=== PATIENT | female | born 1980 | race Caucasian/White ===

== ENCOUNTER 2018-12-26 20:09 | Emergency (ER) | payer BC ==
--- NOTE | 2018-12-26 20:13 | UC ---
Complaint Female HPI - HPI Summary HPI Summary: 38-year-old female who has had occasional burning on urination over the past week. She denies any fever or chills. No nausea vomiting or diarrhea. Last urinary tract infection was approximately one year ago. - History Of Current Complaint Stated Complaint: URINARY COMPLAINT Time Seen by Provider: 12/26/18 20:12 Hx Obtained From: Patient ?: No Onset/Duration: Gradual Onset Timing: Intermittent Severity Initially: Mild Severity Currently: Moderate Character: Burning Aggravating Factor(s): Urination Associated Signs And Symptoms: Positive: Negative - Allergies/Home Medications Allergies/Adverse Reactions: Allergies Allergy/AdvReac Type Severity Reaction Status Date / Time No Known Allergies Allergy Verified 12/26/18 20:26 Home Medications: Home Medications Ibuprofen TAB* [Motrin TAB* 600 MG] 600 mg PO Q6H PRN 12/26/18 [History Confirmed 12/26/18] PMH/Surg Hx/FS Hx/Imm Hx Previously Healthy: Yes - Family History Known Family History: Positive: Non-Contributory Review of Systems All Other Systems Reviewed And Are Negative: Yes Genitourinary: Positive: Dysuria, Frequency, Urgency. Negative: Vaginal/Penile Burning, Vaginal/Penile Itching, Vaginal/Penile Discharge, Vaginal/Penile Pain, Vaginal/Penile Tenderness Is Patient Immunocompromised?: No Physical Exam Triage Information Reviewed: Yes Appearance: Well-Appearing, No Pain Distress, Well-Nourished Vital Signs Reviewed: Yes Respiratory: Positive: Lungs clear, Normal breath sounds, No respiratory distress, No accessory muscle use Cardiovascular: Positive: RRR, No Murmur, Pulses Normal, Brisk Capillary Refill Abdomen Description: Positive: Nontender, No Organomegaly, Soft. Negative: CVA Tenderness (R), CVA Tenderness (L), Distended, Guarding Bowel Sounds: Positive: Present Musculoskeletal Exam: Normal Neurological Exam: Normal Psychological Exam: Normal Skin Exam: Normal Complaint Female Dx - Course Course Of Treatment: Urinalysis was positive for leukocytes. The patient was given Bactrim DS one tab by mouth here and a prescription for the same twice a day for 5 days. She is to go the emergency room if she has any back pain, fever, chills or vomiting and unable to keep the medicine down. - Differential Dx/Diagnosis Provider Diagnosis: UTI (urinary tract infection) Discharge - Sign-Out/Discharge Documenting (check all that apply): Patient Departure All imaging exams completed and their final reports reviewed: No Studies - Discharge Plan Condition: Fair Disposition: HOME Prescriptions: Sulfamethox/Trimethoprim DS* [Bactrim DS 800/160 TAB*] 1 tab PO BID 5 Days #9 tab Patient Education Materials: Urinary Tract Infection in Women (DC) Referrals: Farrah Turner MD [Primary Care Provider] - Additional Instructions: Increase fluids. Take the Bactrim with food. Follow-up with your primary care provider if no improvement in 2 or 3 days. Go to the emergency room if you develop fever, chills, back pain or vomiting and unable keep the medication down. - Billing Disposition and Condition Condition: FAIR Disposition: Home - Attestation Statements Provider Attestation: I was available for consult. This patient was seen by the ORIN. The patient was not presented to , seen by or examined by de -Reji Purcell MD
[2018-12-26 20:33] VITALS: BP 115/74
[2018-12-26] MEDS ORDERED: Sulfamethox/Trimethoprim DS 800/160* TAB PO ONE (20:45)
== END 2018-12-26 20:54 | disposition home or self-care (01) ==
LOC: UCCORT 20:09
DX: N39.0 Urinary tract infection, site not specified (principal)
CPT/HCPCS: 81003; 87086; 99202; A9270-GY; G0463